=== PATIENT | male | born 1990 | race Caucasian/White ===

== ENCOUNTER 2017-02-23 06:15 | Emergency (ER) | payer MEDICARE, MEDICAID, SELFPAY | END 2017-02-23 07:16 | disposition short-term general hospital (02) | PROVIDERS: Emergency Provider Emergency Medicine; Visit Provider Emergency Medicine | DX: S09.90XA Unspecified injury of head, initial encounter (principal); R73.9 Hyperglycemia, unspecified | CPT/HCPCS: 71010; 72170; 82962; 96365; 99285 ==